=== PATIENT | male | born 1935 | race Caucasian/White ===

== ENCOUNTER 2016-09-28 09:31 | Emergency (ER) | payer MEDICARE ==
[~2016-09-28 09:31] MED LIST: ASPIRIN81 M1 PO; ATORVASTATIN CA20 M1 PO; CITRACAL + D M1 EAC1 PO; COCONUT OIL1000 M1 PO; FOLIC ACID1 M1 PO; HIGH BP MED; KEFLEX500 M4 PO; LISINOPRIL10 M1 PO; METHOTREXATE2.5 M1 PO; METOPROLOL TART25 M1 PO; MULTIVITAMINS1 EAC5 PO; NO HOME MEDS; PREDNISONE PO; PREDNISONE2.5 M1 PO; PROBIOTIC1 EAC6 PO; VITAMIN D250000 UNI1 PO; VITAMIN D350000 UNI1 PO; [UNRECOGNIZED DRUG - OTHER] PO; methotrexate PO
[2016-09-28] MEDS ORDERED: PREDNISONE10 M1 PO (11:08)
[2016-09-28] MEDS ORDERED: PROTONIX40 M2 PO (11:08)
[2016-09-28] MEDS ORDERED: [UNRECOGNIZED DRUG - OTHER] PO (11:11)
[2016-09-28] MEDS ORDERED: LAMININE PO (11:13)
[2016-09-28 12:21] LABS: BASO % 0.2 % (0-2); EOS % 0.2 % (0-7); HCT-HEMATOCRIT 37.9 % (36.0-53.5); HGB-HEMOGLOBIN 12.7 gm/dl (13.5-17.0); IMMATURE GRANULOCYTES ABSOLUTE 0.04 tho/cmm (0-0.03); IMMATURE GRANULOCYTES PERCENT 0.4 % (0-0.3); LYMPH % 22.3 % (20-45); LYMPH ABSOLUTE COUNT 2.3 tho/cmm (0.8-4.5); MCH (MEAN CORPUSCULAR HGB) 32.1 pg (28.0-32.0); MCHC MEAN CORPUSCULAR HGB CONC 33.5 % (32.0-36.0); MCV (MEAN CELL VOLUME) 95.7 fl (82.0-96.0); MONO % 6.3 % (0-12); MONOCYTE ABSOLUTE COUNT 0.7 tho/cmm (0.0-1.2); NEUTROPHIL ABSOLUTE COUNT 7.2 tho/cmm (1.6-8.0); NEUTROPHIL-AUTOMATED 7.2 tho/cmm (1.6-8.0); NEUTROPHILS % 70.6 % (40-80); PLATELET COUNT 245 tho/cmm (150-450); RED BLOOD COUNT 3.96 mil/cmm (4.40-5.70); RED CELL DISTRIBUTION WIDTH 14.2 % (12.4-16.4); WHITE BLOOD COUNT 10.2 tho/cmm (4.0-10.0)
[2016-09-28 12:33] LABS: ANION GAP 11 mmol/L (0-20); BLOOD UREA NITROGEN 19 mg/dl (6-24); CALCIUM 8.9 mg/dl (8.5-10.5); CARBON DIOXIDE-VENOUS 29 mmol/L (22-32); CHLORIDE 105 mmol/l (96-110); CREATININE 1.11 mg/dl (0.60-1.30); GLUCOSE 98 mg/dL (70-110); POTASSIUM 4.3 mmol/L (3.7-5.1); SODIUM 141 mmol/L (135-145); eGFR VALUE FOR BLACK 73 mL/Min
[2016-09-28] MEDS ORDERED: NORCO 5-325 TA1 EACH PO (12:57)
== END 2016-09-28 13:20 ==
LOC: EDMED 09:31
PROVIDERS: Emergency Medicine
DX: M79.641 Pain in right hand (principal); R22.31 Localized swelling, mass and lump, right upper limb; I10 Essential (primary) hypertension; E78.5 Hyperlipidemia, unspecified; M06.9 Rheumatoid arthritis, unspecified; Z79.899 Other long term (current) drug therapy